=== PATIENT | female | born 1960 | race Two or more races ===

== ENCOUNTER → 2025-01-03 11:20 | Outpatient (REF) | payer MEDICARE, SELFPAY | LOC: HWRAD 11:20 | PROVIDERS: ATTENDING PHYSICIAN Physician Assistant Medical | DX: M79.604 Pain in right leg (principal); R10.31 Right lower quadrant pain | CPT/HCPCS: 93971 ==

== ENCOUNTER → 2025-02-13 07:06 | Outpatient (REF) | payer MEDICARE, SELFPAY | LOC: PAVMRI 07:06 | PROVIDERS: ATTENDING PHYSICIAN Physician Assistant Surgical; FAMILY PHYSICIAN Physician Assistant Medical | DX: M54.16 Radiculopathy, lumbar region (principal) | CPT/HCPCS: 72148 ==